=== PATIENT | female | born 1950 | race Caucasian/White ===

== ENCOUNTER 2016-12-11 10:31 | Emergency (ER) | payer OTHER ==
[2016-12-11] MEDS ORDERED: DIPHTH,PERTUSS(ACELL),TET VAC 0.5 ML VIAL IM ONE ×2 (10:35→10:46)
--- OUTSIDE RECORDS SUMMARY | 2016-12-11 10:42 | XMS REPORT | Continuity of Care Document ---
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 RIGHT EYE LEFT EYE Date Diagnosis Procedure Comments Diagnosis Procedure Comments 02/28/04 PDT 10/23/04 PDT 04/27/05 PDT 07/06/05 PDT Other Ocular Diagnoses: 1.AMD/POHS 2.macular scar s/p PDT OS Ocular Procedures OD: 1.see above 2. Ocular Procedures OS: 1. See above 2. Non-Ocular Medical History: 1. 2. Most Recent Encounters Date Type Specialty Providers Description 12/04/2016 Office Visit Ophthalmology - Vida Dobbins MD Chief Comp: Patient Specialty Reported Reason For Visit Social History Tobacco Use Types Packs/Day Years Used Date Never Smoker Smokeless Tobacco: Never Used Alcohol Use Drinks/Week oz/Week Comments Yes seldom Plan of Care Health Maintenance Due Date Last Done Comments HCV Screening 1950 Hepatitis B Vaccine (1 of 3 - Primary Series) 1950 Tdap Vaccine 1960 Lipid Disorder Screening 12/29/1967 Td Vaccine 12/29/1967 Mammogram 1989 Colonoscopy 1999 Zoster Vaccine 2009 Osteoporosis Screening (DXA Bone Density) 2014 Pneumococcal Vaccine (1 of 2 - PCV13) 2014 Influenza Vaccine: Seasonal (Season Ended) 2017 Results from Last 3 Months Not on file
--- NOTE | 2016-12-11 10:58 | ERNOTE ---
Integumentary HPI - Narrative Date of Service: 12/11/16 - General Time Seen by Provider: 12/11/16 10:33 Source: patient Exam Limitations: no limitations - Immun/Allergies/Home Medications Allergies/Adverse Reactions: Allergies Allergy/AdvReac Type Severity Reaction Status Date / Time No Known Allergies Allergy Unverified 12/11/16 10:39 Home Medications: HOME MEDICATIONS NK [No Home Medication] 12/11/16 [Last Taken Unknown] - History of Present Illness Narrative: Pt. comes in with c/o R volar wrist laceration that occurred at work 20 minutes prior to arrival when she was moving cans and a lid or something on the lid cut her hand. Pt. denies any numbness, tingling, or SOB. Pt. states that bleeding stopped after applying a gauze dressing and washing out wound. Pt. states taht she is unsure of when her last tetanus vaccine was. Review of Systems - Review of Systems Constitutional: Present: no symptoms reported. Absent: fever, chills, weakness , fatigue, malaise EYE: Present: no symptoms reported ENT: Present: no symptoms reported Respiratory: Present: no symptoms reported. Absent: shortness of breath, cough , wheezing Cardiology: Present: no symptoms reported. Absent: chest pain, palpitations, edema Gastrointestinal/Abdominal: Present: no symptoms reported. Absent: nausea, vomiting, diarrhea, abdominal pain Genitourinary: Present: no symptoms reported Musculoskeletal: Present: no symptoms reported. Absent: back pain, joint pain Skin: Present: other - laceration Neurological: Present: no symptoms reported. Absent: headache, dizziness/light- headedness, numbness, tingling All Other Systems: All systems neg except as marked - Patient's Past Medical History Patient History - Medical: No pertinent hx Patient History - Cardiac/Respiratory: No pertinent hx Physical Exam - Physical Exam General Appearance: Present: wd/wn, alert, no apparent distress Eye Exam: Normal inspection: bilateral, PERRL: bilateral, EOMI: bilateral Ears, Nose, Throat: Present: normal ENT inspection, normal pharynx Neck: Present: normal inspection, nontender. Absent: lymphadenopathy (R), lymphadenopathy (L) Respiratory: Present: no respiratory distress, normal breath sounds, no accessory muscle use, chest nontender, lungs clear Cardiovascular/Chest: Present: regular rate, rhythm, no murmur, normal peripheral pulses Gastrointestinal/Abdominal: Present: normal bowel sounds, nontender, nondistended, soft, no organomegaly Back Exam: Present: normal inspection, normal range of motion, no CVA tenderness , no vertebral tenderness Extremity Exam: Present: normal inspection, non-tender, normal range of motion, no edema Neurological Exam: Present: alert, oriented, normal mood/affect, no motor/ sensory deficits Skin Exam: Present: normal color, warm/dry, other - laceration 1.5cm in length flap scant sanguinous drainage. Absent: pallor, skin rash ED Progress - Vital Signs Patient's Vital Signs:: I have reviewed the patient's vital signs. - X-Ray X-Ray #1 X-Ray: wrist Interpretation: Reviewed by me X-ray Comments: no foreign body or acute ossious abnormality Procedures Left Volar Wrist Anesthesia: 1% Lidocaine I & D Prep: betadine prep Wound's Depth/Shape: superficial, flap Wound Explored: clean Wound Intervention: irrigated w/saline Distal NVT: neuro/vasc intact, no tendon injury Wound Repaired With: sutures Suture Size/Type: 6-0, nylon Number of Sutures: 5 Layer Closure: Simple Departure Clinical Impression: Laceration - Departure Disposition: Home self-care Condition: Good Instructions: Laceration Care, Adult, [id number] Additional Instructions: Please follow up with occupational health in 2-3 days for wound check then have sutures removed in 7-10 days
[2016-12-11 11:50] VITALS: BP 117/70
== END 2016-12-11 11:30 | disposition home or self-care (01) ==
LOC: ER 10:31
PROC: 0HQGXZZ Repair Left Hand Skin, External Approach (ICD-10-PCS; principal; 2016-12-11)
DX: S61.511A Laceration without foreign body of right wrist, initial encounter (principal); W26.8XXA Contact with other sharp object(s), not elsewhere classified, initial encounter; Y93.9 Activity, unspecified; Y92.219 Unspecified school as the place of occurrence of the external cause; Y99.0 Civilian activity done for income or pay; Z23 Encounter for immunization

== ENCOUNTER 2020-06-23 14:46 | Observation (INO) ==
--- NOTE | 2020-06-23 15:02 | ERNOTE ---
Lower Extremity HPI - Narrative Date of Service: 06/23/20 - General Lower Extremities Pain: hip: left Time Seen by Provider: 06/23/20 14:49 Source: patient Exam Limitations: no limitations - Immun/Allergies/Home Medications Immunizations: IMMUNIZATION HX Immunizations Up to Date Yes History of Influenza Vaccine No Hx Pneumococcal Vaccination No Allergies/Adverse Reactions: Allergies Allergy/AdvReac Type Severity Reaction Status Date / Time No Known Allergies Allergy Verified 06/23/20 15:02 Home Medications: HOME MEDICATIONS lisinopril 10 mg-hydrochlorothiazide 12.5 mg tablet 1 tab PO DAILY #90 tab 04/13/20 [Last Taken Unknown] - Pain Score Pain Score #1 Pain Score: 8 - History of Present Illness Narrative: The patient is a 69 year old female who presents for left hip and groin pain which has been present since last evening. There are no associated symptoms. The patient reports pain to left hip and groin, 8/10. There are no alleviating factors. There are aggravating factors of weight bearing and ROM. Previous treatments have included: Tylenol and Ibuprofen without improvement. The past medical history includes: HTN. The social history is negative. The patient has had no known ill contacts. Patient states last evening she was walking down steps and slipped missing last step landing on her left lateral hip and buttock. Patient denies striking head, LOC or neck pain. Patient states since injury she has been unable to bear weight. Review of Systems - Review of Systems Constitutional: Present: no symptoms reported. Absent: recent illness, fever, fatigue EYE: Present: no symptoms reported ENT: Present: no symptoms reported. Absent: ear pain, nasal drainage, sore throat Respiratory: Present: no symptoms reported. Absent: shortness of breath, cough Cardiology: Present: no symptoms reported. Absent: chest pain Gastrointestinal/Abdominal: Present: no symptoms reported. Absent: nausea, vomiting, diarrhea Genitourinary: Present: no symptoms reported. Absent: dysuria Musculoskeletal: Present: joint pain. Absent: back pain, neck pain Skin: Present: no symptoms reported. Absent: rash Neurological: Present: no symptoms reported All Other Systems: All systems neg except as marked Medical History (Last Reviewed 06/23/20 @ 14:59 by DARLENE Mccann) Allergic rhinitis (Chronic) Hypertension (Chronic) Onset Date: ~07/2018 Surgical History: Surgical History (Last Reviewed 06/23/20 @ 14:59 by DARLENE Mccann) History of colonoscopy Onset Date: 09/23/18 09/23/18 Bagan-tubulovillous adenoma. Recheck 3 yrs. History of tonsillectomy Onset Date: Unknown History of tubal ligation Onset Date: ~1975 Family History: Family History (Last Reviewed 06/23/20 @ 14:59 by DARLENE Mccann) Mother , age 76-[place] Myocardial infarction CAD (coronary artery disease) Sister Epilepsy Sister Breast cancer dx age 60's Father , age 65-kidney failure No problems noted. Brother of unknown cause 1 brother age 59 Cancer 1 brother age 71-lung ca Myocardial infarction 1 brother age 46, 1 brother age 59 Brother Alive and well 4 brothers Social History: (Last Reviewed 06/23/20 @ 14:59 by DARLENE Mccann) Social History: adopted: No foster care: No longterm: No Marital status: lives independently: No household members: spouse number of children: 2 caregiver/support person: No current occupational status: retired Highest level of school completed/degree received: high school graduate Service: No Tobacco: Smoking Status: Never smoker Alcohol: alcohol intake: current alcohol intake frequency: a few times a month Substance Use: substance use type: does not use Dietary Habits: caffeine: Yes Type: coffee Personal Safety: victim of physical abuse: No victim of emotional abuse: No Physical Exam - Physical Exam General Appearance: Present: wd/wn, alert, moderate distress Head Exam: Present: normal inspection, no evidence of injury Eye Exam: Normal inspection: bilateral Neck: Present: normal inspection, nontender, full range of motion Respiratory: Present: no respiratory distress, normal breath sounds, no accessory muscle use, lungs clear Cardiovascular/Chest: Present: regular rate, rhythm, no murmur Peripheral Pulses: N=norm/S=strong/W=weak/B=bound/A=absent: Dorsalis-pedis (L): Normal Extremity Exam: Present: normal range of motion - left knee and ankle, able to hold extension to knee, decreased range of motion - left hip associated with pain, bony tenderness - left lateral hip and left groin Neurological Exam: Present: alert, oriented, normal mood/affect, no motor/sensory deficits Skin Exam: Present: normal color, warm/dry Progress - Date and Time Seen: Date and Time: 06/23/20 16:06 No acute pathology on xray, will offer pain medication and reassess pain level. 06/23/20 17:09 Patient having improved pain but remains to have difficulty with weight bearing to left leg. Will proceed with CT imaging for further evaluation. 06/23/20 18:[address] imaging results discussed with ROS Asher. Will admit to medicine with plan for surgical intervention tomorrow pending medical clearance. Patient informed of plan of care and verbalized understanding. 06/23/20 18:32 contacted and will admit to medicine for surgical clearance. Patient updated regarding plan of care, will COVID test for placement. - Vital Signs Patient's Vital Signs:: I have reviewed the patient's vital signs. - EKG EKG #1 EKG: NSR EKG read: Reviewed by me - X-Ray X-Ray #1 X-Ray: hip Interpretation: Reviewed by me X-ray Comments: IMPRESSION: 1. NO ACUTE OSSEOUS ABNORMALITY INVOLVING THE AP PELVIS OR LEFT HIP. Electronically signed by Roddy Elias M.D.. - CT/Ultrasound CT/Ultrasound Narrative: Impression: Acute, mildly displaced fracture at the posterior aspect of the basicervical portion of the left femoral neck and junction with the greater trochanter. Subtle nondisplaced fracture at the inferior aspect of the left pubic ramus. Additional findings and comments are as above. Electronically signed by Casa Barboza D.O.. Departure Clinical Impression: Hip fracture, left Qualifiers: Encounter type: initial encounter Fracture type: closed Qualified Code(s): S72.002A - Fracture of unspecified part of neck of left femur, initial encounter for closed fracture - Departure Disposition: Still a patient Condition: Good Print Language: Ukrainian Referrals: Viviane Cornejo FNP [Primary Care Provider] -
[2020-06-23] MEDS ORDERED: ORPHENADRINE CITRATE 30 MG/ML VIAL IM ONE (16:10)
[2020-06-23 18:21] LABS: Hematocrit 37.6 % (37.0-47.0); Hemoglobin 12.2 gm/dL (12.5-16.0); Mean Cell Volume 89.3 fl (78-100); Mean Corpuscular Hgb Conc 32.4 g/dl (32-36); Mean Platelet Volume 9.9 fl (8-12.5); Neutrophil # 10.4 K/mm3 (1.3-6.0); Neutrophil % 76.2 % (42-75.0); Platelet Count 263 K/mm3 (150-450); Red Blood Count 4.21 M/mm3 (4.2-5.4); Red Cell Distribution Width 13.1 % (11.5-14.0); White Blood Count 13.6 K/mm3 (4.0-10.5)
[2020-06-23 18:36] LABS: Anion Gap 11.4 mmol/L (6.8-13.8); BUN/Creatinine Ratio 16.1 (9.0-21.6); Bilirubin, Total 0.7 mg/dL (0.0-1.1); Ca. Corrected For Albumin 9.3 mg/dL (8.4-10.2); Calcium * 9.6 mg/dL (7.9-10.9); Carbon Dioxide 28.3 mmol/L (24-32.6); Potassium 3.7 mmol/L (3.4-4.6); Total Protein 7.6 gm/dL (6.2-8.2)
--- NOTE | 2020-06-23 18:57 | HP ---
Chief Complaint - Chief Complaint Date of Service: 06/23/20 Time of Service: 18:32 Chief Complaint: Left hip pain History of Present Illness: 69-year-old female with a past medical history of hypertension presents from home status post fall. She states she fell down the steps last night. She had difficulty ambulating throughout the day today and presented to the emergency room with left hip pain. In the ER she was found to have CT scan positive for acute mildly displaced fracture at the posterior aspect of the left femoral neck, and subtle nondisplaced fracture of the left pubic ramus. Medical History (Last Reviewed 06/23/20 @ 15:13 by Viviane Garcia RN) Allergic rhinitis (Chronic) Hypertension (Chronic) Onset Date: ~07/2018 Surgical History: Surgical History (Last Reviewed 06/23/20 @ 15:13 by Viviane Garcia RN) History of colonoscopy Onset Date: 09/23/18 09/23/18 Bagan-tubulovillous adenoma. Recheck 3 yrs. History of tonsillectomy Onset Date: Unknown History of tubal ligation Onset Date: ~1975 Family History: Family History (Last Reviewed 06/23/20 @ 15:13 by Viviane Garcia RN) Mother , age 76-[place] CAD (coronary artery disease) Myocardial infarction Sister Epilepsy Sister Breast cancer dx age 60's Father , age 65-kidney failure No problems noted. Brother Myocardial infarction 1 brother age 46, 1 brother age 59 Cancer 1 brother age 71-lung ca of unknown cause 1 brother age 59 Brother Alive and well 4 brothers Social History: (Last Reviewed 06/23/20 @ 15:13 by Viviane Garcia RN) Social History: adopted: No foster care: No care home: No Marital status: lives independently: No household members: spouse number of children: 2 caregiver/support person: No current occupational status: retired Highest level of school completed/degree received: high school graduate Service: No Tobacco: Smoking Status: Never smoker Alcohol: alcohol intake: current alcohol intake frequency: a few times a month Substance Use: substance use type: does not use Dietary Habits: caffeine: Yes Type: coffee Personal Safety: victim of physical abuse: No victim of emotional abuse: No Review Of Systems (GEN) - Review of Systems Generalized/Overall Review: Absent: Fever Respiratory: Absent: Shortness of Breath Cardiac: Absent: Chest Pain Abdominal: Absent: Abdominal Pain Musculoskeletal: Present: Joint Pain - Left hip Misc: All systems neg except as marked Immunizations: IMMUNIZATION HX Immunizations Up to Date Yes History of Influenza Vaccine No Hx Pneumococcal Vaccination Yes Allergies/Adverse Reactions: Allergies Allergy/AdvReac Type Severity Reaction Status Date / Time No Known Allergies Allergy Verified 06/23/20 15:02 Home Medications: HOME MEDICATIONS lisinopril 10 mg-hydrochlorothiazide 12.5 mg tablet 1 tab PO DAILY #90 tab 04/13/20 [Last Taken Unknown] Exam - Exam Vital Signs: Vital Signs - Last Taken Temp 37.2 C 06/23/20 17:45 Pulse 68 06/23/20 17:45 Resp 16 06/23/20 17:45 BP 157/93 H 06/23/20 17:45 Pulse Ox 99 06/23/20 17:45 Constitutional: Present: Alert, Cooperative, Well developed, Well nourished, No distress, Elderly ENT Exam: Present: hearing grossly normal Eye Exam: bilateral eye: normal inspection, PERRL, EOMI Neck: Present: non-tender, supple. Absent: lymphadenopathy (R), lymphadenopathy (L) Back Exam: Present: normal inspection, no CVA tenderness, no vertebral tenderness Respiratory: Present: lungs clear, no respiratory distress, no accessory muscle use, No wheezing. Absent: rhonchi, wheezing Cardiovascular/Chest: Present: normal peripheral pulses, regular rate, rhythm, no murmur Peripheral Pulses: dorsalis-pedis (R): 1+, dorsalis-pedis (L): 1+ Abdomen: Present: Normal bowel sounds, soft, nontender Extremity: Present: no pedal edema, leg pain - Left hip Skin Exam: Present: normal color, warm/dry Neurologic: Present: alert, normal mood/affect Appearance: Present: appropriate appearance, appropriate insight Eye contact: Present: cooperative Thoughts: Present: normal thought pattern, normal mood /affect Diagnostic Studies: Abnormal Lab Results 06/23/20 Range/Units 18:15 WBC 13.6 H (4.0-10.5) K/mm3 Hgb 12.2 L (12.5-16.0) gm/dL Immature Gran % (Auto) 0.70 H (0.001-0.429) % Immature Gran # (Auto) 0.09 H (0.000-0.0310) K/mm3 Neutrophils % 76.2 H (42-75.0) % Lymphocytes % 12.1 L (20-51) % Eosinophils % 3.7 H (0.0-3.0) % Neutrophils # 10.4 H (1.3-6.0) K/mm3 Laboratory Results WBC 13.6 K/mm3 (4.0-10.5) H 06/23/20 18:15 RBC 4.21 M/mm3 (4.2-5.4) 06/23/20 18:15 Hgb 12.2 gm/dL (12.5-16.0) L 06/23/20 18:15 Hct 37.6 % (37.0-47.0) 06/23/20 18:15 MCV 89.3 fl (78-100) 06/23/20 18:15 MCH 29.0 pg (27-31) 06/23/20 18:15 MCHC 32.4 g/dl (32-36) 06/23/20 18:15 RDW 13.1 % (11.5-14.0) 06/23/20 18:15 Plt Count 263 K/mm3 (150-450) 06/23/20 18:15 MPV 9.9 fl (8-12.5) 06/23/20 18:15 Immature Gran % (Auto) 0.70 % (0.001-0.429) H 06/23/20 18:15 Immature Gran # (Auto) 0.09 K/mm3 (0.000-0.0310) H 06/23/20 18:15 Neutrophils % 76.2 % (42-75.0) H 06/23/20 18:15 Lymphocytes % 12.1 % (20-51) L 06/23/20 18:15 Monocytes % 7.0 % (0.0-9) 06/23/20 18:15 Eosinophils % 3.7 % (0.0-3.0) H 06/23/20 18:15 Basophils % 0.3 % (0.0-1.0) 06/23/20 18:15 Nucleated RBC % 0.0 k/mm3 (0-1) 06/23/20 18:15 Neutrophils # 10.4 K/mm3 (1.3-6.0) H 06/23/20 18:15 Lymphocytes # 1.65 k/mm3 (1.5-3.5) 06/23/20 18:15 Monocytes # 1.0 k/mm3 (0.0-1.0) 06/23/20 18:15 Eosinophils # 0.5 k/mm3 (0.0-0.7) 06/23/20 18:15 Absolute Basophils 0.0 k/mm3 (0.0-0.1) 06/23/20 18:15 Sodium 136 mmol/L (132-142) 06/23/20 18:15 Plasma Sodium 136 mmol/L (130-142) 06/23/20 18:15 Potassium 3.7 mmol/L (3.4-4.6) 06/23/20 18:15 Chloride 100 mmol/L (97-106) 06/23/20 18:15 Carbon Dioxide 28.3 mmol/L (24-32.6) 06/23/20 18:15 Anion Gap 11.4 mmol/L (6.8-13.8) 06/23/20 18:15 BUN 15 mg/dL (3-23) 06/23/20 18:15 Creatinine 0.93 mg/dL (0.4-1.4) 06/23/20 18:15 Est GFR (Non-Af Amer) 63 mL/min (60-130) 06/23/20 18:15 BUN/Creatinine Ratio 16.1 (9.0-21.6) 06/23/20 18:15 Random Glucose 107 mg/dL (70-110) 06/23/20 18:15 Calcium 9.6 mg/dL (7.9-10.9) 06/23/20 18:15 Calcium Adj for Albumin 9.3 mg/dL (8.4-10.2) 06/23/20 18:15 Total Bilirubin 0.7 mg/dL (0.0-1.1) 06/23/20 18:15 AST 26 U/L (0-48) 06/23/20 18:15 ALT 29 U/L (19-67) 06/23/20 18:15 Alkaline Phosphatase 73 U/L (50-170) 06/23/20 18:15 Total Protein 7.6 gm/dL (6.2-8.2) 06/23/20 18:15 Albumin 4.0 gm/dl (3.4-5.0) 06/23/20 18:15 Assessment/Plan - Narrative Narrative: 69-year-old female with a past medical history of hypertension presents from home status post fall. She states she fell down the steps last night. She had difficulty ambulating throughout the day today and presented to the emergency room with left hip pain. In the ER she was found to have CT scan positive for acute mildly displaced fracture at the posterior aspect of the left femoral neck, and subtle nondisplaced fracture of the left pubic ramus. She denies chest pain, palpitations, shortness of breath or dizziness. She will be evaluated for surgery by orthopedics tomorrow. She is medically cleared for surgery. Plan #1 resume home medications #2 CBC and CMP in the morning #3 pain management #4 n.p.o. after midnight - Assessment/Plan (1) Hip fracture, left Problem: Acute Qualifiers: Encounter type: initial encounter Fracture type: closed Qualified Code(s): S72.002A - Fracture of unspecified part of neck of left femur, initial encounter for closed fracture (2) Hypertension Problem: Chronic Qualifiers: Hypertension type: essential hypertension
[2020-06-23] MEDS ORDERED: MORPHINE SULFATE 2 MG/ML DISP.SYRIN IV PRN (19:03)
[2020-06-23] MEDS: ACETAMINOPHEN 325 MG TABLET PO PRN (19:24)
[2020-06-23] MEDS: NORMAL SALINE 1,000 ML IV PRN (21:12)
[2020-06-24] MEDS: ACETAMINOPHEN 325 MG TABLET PO PRN ×2 (04:49→13:55)
[2020-06-24] MEDS: NORMAL SALINE 1,000 ML IV PRN (05:40)
[2020-06-24 06:35] LABS: Hematocrit 34.3 % (37.0-47.0); Mean Cell Volume 89.3 fl (78-100); Mean Corpuscular Hemoglobin 28.6 pg (27-31); Mean Corpuscular Hgb Conc 32.1 g/dl (32-36); Mean Platelet Volume 9.9 fl (8-12.5); Neutrophil # 7.3 K/mm3 (1.3-6.0); Neutrophil % 68.8 % (42-75.0); Platelet Count 243 K/mm3 (150-450); Red Blood Count 3.84 M/mm3 (4.2-5.4); Red Cell Distribution Width 13.1 % (11.5-14.0); White Blood Count 10.6 K/mm3 (4.0-10.5)
[2020-06-24 06:54] LABS: Albumin * 3.3 gm/dl (3.4-5.0); Anion Gap 10.9 mmol/L (6.8-13.8); BUN/Creatinine Ratio 15.9 (9.0-21.6); Bilirubin, Total 0.9 mg/dL (0.0-1.1); Ca. Corrected For Albumin 8.8 mg/dL (8.4-10.2); Calcium * 8.6 mg/dL (7.9-10.9); Carbon Dioxide 27.7 mmol/L (24-32.6); Potassium 3.6 mmol/L (3.4-4.6); Total Protein 6.6 gm/dL (6.2-8.2)
--- NOTE | 2020-06-24 08:33 | CONS ---
- Reason for consultation (1) Inferior pubic ramus fracture Date of Service: 06/24/20 (2) Hip fracture, left Date of Service: 06/24/20 HPI - General Date of Service: 06/24/20 Narrative: 69-year-old patient presented to the ER status post a fall with significant left hip pain. Patient difficulty weightbearing, and continued pain is gradually worsening. Patient notes her pain is significantly worse with weightbearing activity drastically improved with rest. She notes that it mostly radiates in her upper thigh and hip region. Patient denies any significant medications at home. She is otherwise healthy has a past medical history of hypertension. Patient denies any other acute concerns. She denies any other significant modifying factors. Source: patient Exam Limitations: no limitations - History of Present Illness Allergies/Adverse Reactions: Allergies No Known Allergies Allergy (Verified 06/23/20 15:02) Home Medications: Home Medications Medication Instructions Recorded Last Taken lisinopril 10 1 tab PO DAILY #90 tab 04/13/20 06/23/20 07:00 mg-hydrochlorothiazide 12.5 mg tablet Procedures Repair Left Hand Skin, External Approach (12/11/16) Medications - Medications Current Medications: Current Medications Acetaminophen (Acetaminophen 325 Mg Tablet) 650 mg PO Q6H PRN PRN Reason: Pain Stop: 07/23/20 19:16 Last Admin: 06/24/20 04:49 Dose: 650 mg Documented by: Hydrochlorothiazide (Hydrochlorothiazide 12.5 Mg Capsule) 12.5 mg PO DAILY MP Stop: 07/24/20 09:01 Last Admin: 06/24/20 08:13 Dose: 12.5 mg Documented by: Sodium Chloride (Sodium Chloride 0.9%) 1,000 mls @ 120 mls/hr IV .Q8H20M PRN PRN Reason: HYDRATION Stop: 07/23/20 19:54 Last Admin: 06/24/20 05:40 Dose: 120 mls/hr Documented by: Lisinopril (Lisinopril 10 Mg Tablet) 10 mg PO DAILY MP Stop: 07/24/20 09:01 Last Admin: 06/24/20 08:13 Dose: 10 mg Documented by: Physical Examination - Exam Vital Signs: Vital Signs - Last Taken Temp 36.9 C 06/24/20 06:00 Pulse 73 06/24/20 08:13 Resp 16 06/24/20 06:00 BP 127/75 06/24/20 08:13 Pulse Ox 94 06/24/20 06:00 O2 Oxygen Delivery Method Room Air Constitutional: Present: Alert, Oriented x3, Cooperative, No distress Respiratory: Present: no respiratory distress Extremity: Present: other - Left lower extremity--> sensation tact light touch, distal capillary refill brisk, 5/5 plantar flexion dorsiflexion ankle, no obvious wounds or deformities, diffuse mild tenderness about the upper thigh and hip region Skin Exam: Present: normal color Appearance: Present: appropriate appearance Eye contact: Present: cooperative, good eye contact Thoughts: Present: normal thought pattern - Results and Findings: Lab/Microbiology results last 24 hrs: Abnormal/Pending Laboratory Last 24 HRS 06/24/20 06/24/20 06/23/20 06:20 06:20 18:15 WBC 10.6 H D 13.6 H RBC 3.84 L Hgb 11.0 L 12.2 L Hct 34.3 L Immature Gran % (Auto) 0.70 H 0.70 H Immature Gran # (Auto) 0.07 H 0.09 H Neutrophils % 76.2 H Lymphocytes % 12.6 L 12.1 L Eosinophils % 9.0 H 3.7 H Neutrophils # 7.3 H 10.4 H Lymphocytes # 1.34 L Eosinophils # 1.0 H Albumin 3.3 L - Assessments/Findings (1) Inferior pubic ramus fracture Problem: Acute (2) Hip fracture, left Problem: Acute Qualifiers: Encounter type: initial encounter Fracture type: closed Qualified Code(s): S72.002A - Fracture of unspecified part of neck of left femur, initial encounter for closed fracture Plan - Plan Plan: 69-year-old female with right hip fracture and inferior pubic ramus fracture, note these fractures can both be managed nonoperatively with close follow-up and protective weightbearing. Reviewed the films with Dr. Pedersen and he agrees with this treatment plan as well as plan of follow-up care. -Weightbearing as tolerated with assistive device of a walker, protective weightbearing -P.o. diet as tolerated -P.o. pain medication per medicine team on discharge -Follow-up with orthopedic outpatient clinic in 1 week for repeat films -Must pass goals of physical therapy including steps to enter her home -Contact orthopedic outpatient office with any significant questions or concerns -Disposition: Once patient has met all goals with physical therapy and is tolerating a p.o. diet, pain well controlled she will be discharged home with close follow-up in 1 week and repeat films
[2020-06-24] MEDS ORDERED: LISINOPRIL 10 MG TABLET PO SCH (09:00)
[2020-06-24] MEDS ORDERED: HYDROCHLOROTHIAZIDE 12.5 MG CAPSULE PO SCH (09:00)
--- NOTE | 2020-06-24 12:06 | DS ---
(1) Hip fracture, left Problem: Acute Qualifiers: Encounter type: initial encounter Fracture type: closed Qualified Code(s): S72.002A - Fracture of unspecified part of neck of left femur, initial encounter for closed fracture (2) Hypertension Problem: Chronic Qualifiers: Hypertension type: essential hypertension Hospital Course: 69-year-old female with a past medical history of hypertension presents from home status post fall. She states she fell down the steps last night. She had difficulty ambulating throughout the day today and presented to the emergency room with left hip pain. In the ER she was found to have CT scan positive for acute mildly displaced fracture at the posterior aspect of the left femoral neck, and subtle nondisplaced fracture of the left pubic ramus. She was evaluated by orthopedics and they determined that no surgical intervention is needed. They would like to follow-up with her in 1 week in the outpatient setting. She has been advised to weight-bear as tolerated. She ambulated well with a walker. She is stable for discharge home today. She did not require any narcotic medication while in the hospital. Advised to alternate Tylenol and ibuprofen as needed for pain. Procedures Performed: none Results and Findings: Lab Pending Results 06/23/20 18:15: WBC 13.6 H, RBC 4.21, Hgb 12.2 L, Hct 37.6, MCV 89.3, MCH 29.0, MCHC 32.4, RDW 13.1, Plt Count 263, MPV 9.9, Immature Gran % (Auto) 0.70 H, Immature Gran # (Auto) 0.09 H, Neutrophils % 76.2 H, Lymphocytes % 12.1 L, Monocytes % 7.0, Eosinophils % 3.7 H, Basophils % 0.3, Nucleated RBC % 0.0, Neutrophils # 10.4 H, Lymphocytes # 1.65, Monocytes # 1.0, Eosinophils # 0.5, Absolute Basophils 0.0 06/23/20 18:15: Sodium 136, Plasma Sodium 136, Potassium 3.7, Chloride 100, Carbon Dioxide 28.3, Anion Gap 11.4, BUN 15, Creatinine 0.93, Est GFR (Non-Af Amer) 63, BUN/Creatinine Ratio 16.1, Random Glucose 107, Calcium 9.6, Calcium Adj for Albumin 9.3, Total Bilirubin 0.7, AST 26, ALT 29, Alkaline Phosphatase 73, Total Protein 7.6, Albumin 4.0 06/23/20 18:26: SARS-CoV-2 (PCR) Not detected 06/24/20 06:20: WBC 10.6 H D, RBC 3.84 L, Hgb 11.0 L, Hct 34.3 L, MCV 89.3, MCH 28.6, MCHC 32.1, RDW 13.1, Plt Count 243, MPV 9.9, Immature Gran % (Auto) 0.70 H, Immature Gran # (Auto) 0.07 H, Neutrophils % 68.8, Lymphocytes % 12.6 L, Monocytes % 8.5, Eosinophils % 9.0 H, Basophils % 0.4, Nucleated RBC % 0.0, Neutrophils # 7.3 H, Lymphocytes # 1.34 L, Monocytes # 0.9, Eosinophils # 1.0 H, Absolute Basophils 0.0 06/24/20 06:20: Sodium 141, Plasma Sodium 141, Potassium 3.6, Chloride 106, Carbon Dioxide 27.7, Anion Gap 10.9, BUN 11, Creatinine 0.69, Est GFR (Non-Af Amer) 89 D, BUN/Creatinine Ratio 15.9, Random Glucose 104, Calcium 8.6, Calcium Adj for Albumin 8.8, Total Bilirubin 0.9, AST 23, ALT 23, Alkaline Phosphatase 67, Total Protein 6.6, Albumin 3.3 L Discharge Location: Home Disposition: Home self-care Condition: Good Discharge Activity: Activity as tolerated, Weight bearing - Left lower extremity, weightbearing as tolerated Discharge Diet: General/regular food Referrals: Viviane Cornejo FNP [Primary Care Provider] - Additional Patient Instructions (free text): Follow-up with [facility] orthopedic clinic in 1 week for repeat films, on July 01 at 12:45. Weightbearing as tolerated with assistive device of a walker, protective weightbearing -Contact orthopedic outpatient office with any significant questions or concerns [phone] Complete Home Medications List: Complete Home Medication List: lisinopril 10 mg-hydrochlorothiazide 12.5 mg tablet 1 tab PO DAILY #90 tab 04/13/20
[2020-06-24 15:00] VITALS: BP 128/76
== END 2020-06-24 15:00 | disposition home or self-care (01) ==
LOC: ER 14:46 → INTOOBSV 19:45 → MS 19:45
PROVIDERS: ADMIT Internal Medicine; ATTEND Internal Medicine

== ENCOUNTER 2020-07-04 18:33 | Inpatient (IN) ==
[2020-07-04] MEDS ORDERED: ORPHENADRINE CITRATE 30 MG/ML VIAL IM ONE (18:48)
--- NOTE | 2020-07-04 18:50 | ERNOTE ---
Lower Extremity HPI - Narrative Date of Service: 07/04/20 - General Lower Extremities Pain: leg: left Time Seen by Provider: 07/04/20 18:37 Source: patient Exam Limitations: no limitations - Immun/Allergies/Home Medications Immunizations: IMMUNIZATION HX Immunizations Up to Date Yes History of Influenza Vaccine No Hx Pneumococcal Vaccination Yes Allergies/Adverse Reactions: Allergies Allergy/AdvReac Type Severity Reaction Status Date / Time No Known Allergies Allergy Verified 07/04/20 18:39 Home Medications: HOME MEDICATIONS lisinopril 10 mg-hydrochlorothiazide 12.5 mg tablet 1 tab PO DAILY #90 tab 04/13/20 [Last Taken 06/23/20 07:00] ibuprofen 600 mg tablet 600 mg PO Q6H PRN #60 tab 06/28/20 [Last Taken Unknown] - Pain Score Pain Score #1 Pain Score: 6 - History of Present Illness Narrative: The patient is a 69 year old female who presents for increased pain to left hip which has been present for 2 days. There are no associated symptoms. The patient reports pain to left anterior and lateral hip and groin, 12/30. There are alleviating factors of immobilization. There are aggravating factors of weight bearing and activity. Previous treatments have included: Ibuprofen without improvement. The past medical history includes: HTN. The social hi story is negative. The patient has had no known ill contacts. Patient had reported fall on 06/22/20, patient was evaluted on 06/23/20 with imaging results showing left inferior pubic ramus fx and left greater trochanter. Patient had follow up with orthopedic office on 07/01/20 with repeat imaging and patient was without pain and felt to be doing well. Patient states yesterday she developed increased pain and difficulty with weight bearing. Patient denies injury or change to activity. Review of Systems - Review of Systems Constitutional: Present: no symptoms reported. Absent: recent illness, fever, fatigue EYE: Present: no symptoms reported ENT: Present: no symptoms reported. Absent: ear pain, nasal drainage, sore throat Respiratory: Present: no symptoms reported. Absent: shortness of breath, cough Cardiology: Present: no symptoms reported. Absent: chest pain Gastrointestinal/Abdominal: Present: no symptoms reported. Absent: nausea, vomiting, diarrhea Genitourinary: Present: no symptoms reported. Absent: dysuria, decreased urinary output Musculoskeletal: Present: joint pain Skin: Present: no symptoms reported. Absent: rash All Other Systems: All systems neg except as marked Medical History (Last Reviewed 07/04/20 @ 19:59 by DARLENE Mccann) Hip fracture, left (Acute) Greater trochanter Allergic rhinitis (Chronic) Hypertension (Chronic) Onset Date: ~07/2018 Surgical History: Surgical History (Last Reviewed 07/04/20 @ 19:59 by DARLENE Mccann) History of colonoscopy Onset Date: 09/23/18 09/23/18 [place]-tubulovillous adenoma. Recheck 3 yrs. History of tonsillectomy Onset Date: Unknown History of tubal ligation Onset Date: ~1975 Family History: Family History (Last Reviewed 07/04/20 @ 19:59 by DARLENE Mccann) Mother , age 76-[place] CAD (coronary artery disease) Myocardial infarction Sister Epilepsy Sister Breast cancer dx age 60's Father , age 65-kidney failure No problems noted. Brother Myocardial infarction 1 brother age 46, 1 brother age 59 Cancer 1 brother age 71-lung ca of unknown cause 1 brother age 59 Brother Alive and well 4 brothers Social History: (Last Reviewed 07/04/20 @ 19:59 by DARLENE Mccann) Social History: adopted: No foster care: No prison: No Marital status: lives independently: No household members: spouse number of children: 2 caregiver/support person: No current occupational status: retired current occupation: retired Highest level of school completed/degree received: high school graduate Service: No Tobacco: Smoking Status: Never smoker Alcohol: alcohol intake: current alcohol intake frequency: a few times a month Substance Use: substance use type: does not use Dietary Habits: caffeine: Yes Type: coffee Personal Safety: victim of physical abuse: No victim of emotional abuse: No Physical Exam - Physical Exam General Appearance: Present: wd/wn, alert, moderate distress Head Exam: Present: normal inspection, no evidence of injury Eye Exam: Normal inspection: bilateral Neck: Present: normal inspection, nontender Respiratory: Present: no respiratory distress, normal breath sounds, no accessory muscle use, lungs clear Cardiovascular/Chest: Present: regular rate, rhythm, no murmur Peripheral Pulses: N=norm/S=strong/W=weak/B=bound/A=absent: Dorsalis-pedis (L): Normal Extremity Exam: Present: decreased range of motion - limited ROM to left hip, bony tenderness - pain to anterior proximal femur and groin, extremity edema. Absent: joint redness, joint swelling Neurological Exam: Present: alert, oriented, normal mood/affect, no motor/sensory deficits Skin Exam: Present: normal color, warm/dry Progress - Date and Time Seen: Date and Time: 07/04/20 20:08 Images sent to [facility], instructed to admit to medicine for plan for surgical repair due to interval worsening of fracture. 07/04/20 21:22 Case reviewed with and will admit to medicine. Will administer IV fluids for hydration which is thought to be cause for elevation to crea. - Results and Orders Patient's Lab Results:: I have reviewed the patient's lab results. - Vital Signs Patient's Vital Signs:: I have reviewed the patient's vital signs. Vital Signs: Vital Signs 07/04/20 18:35 Temperature 36.9 C Pulse Rate 76 Respiratory Rate 16 Blood Pressure 182/67 H O2 Sat by Pulse Oximetry 100 - EKG EKG #1 EKG: NSR EKG read: Reviewed by me EKG Comments: wandering baseline - X-Ray X-Ray #1 X-Ray: chest Interpretation: Reviewed by me X-ray Comments: IMPRESSION: 1. NO ACUTE CARDIOPULMONARY PROCESS. Electronically signed by Roddy Elias M.D.. X-Ray #2 X-Ray: hip Interpretation: Reviewed by me X-ray Comments: IMPRESSION: 1. DIFFUSE OSTEOPENIA. 2. NO ACUTE OSSEOUS ABNORMALITY INVOLVING THE AP PELVIS 3. NONDISPLACED VERTICAL FRACTURE THROUGH THE LEFT GREATER TROCHANTER Electronically signed by Roddy Elias M.D.. - Progress/Reassessment Chief Complaint: Lower Extremity Pain/ Injury Departure Clinical Impression: Acute renal insufficiency Intertrochanteric fracture of left femur Qualifiers: Encounter type: initial encounter Fracture type: closed Fracture alignment: nondisplaced Qualified Code(s): S72.145A - Nondisplaced intertrochanteric fracture of left femur, initial encounter for closed fracture Inferior pubic ramus fracture Qualifiers: Encounter type: initial encounter Fracture type: closed Laterality: left Qualified Code(s): Z61.750T - Other specified fracture of left pubis, initial encounter for closed fracture - Departure Disposition: Still a patient Condition: Stable Referrals: Viviane Cornejo, [facility] [Primary Care Provider] -
[2020-07-04] MEDS ORDERED: MORPHINE SULFATE 4 MG/ML SYRG IV ONE (20:26)
[2020-07-04 20:30] LABS: Hemoglobin 11.5 gm/dL (12.5-16.0); Mean Cell Volume 91.1 fl (78-100); Mean Corpuscular Hemoglobin 29.1 pg (27-31); Mean Corpuscular Hgb Conc 31.9 g/dl (32-36); Mean Platelet Volume 10.3 fl (8-12.5); Platelet Count 393 K/mm3 (150-450); Red Blood Count 3.95 M/mm3 (4.2-5.4); Red Cell Distribution Width 13.3 % (11.5-14.0); White Blood Count 14.6 K/mm3 (4.0-10.5)
[2020-07-04 20:32] LABS: Total Cells Counted 100
[2020-07-04 20:45] LABS: Albumin * 4.1 gm/dl (3.4-5.0); Anion Gap 14.6 mmol/L (6.8-13.8); BUN/Creatinine Ratio 32.2 (9.0-21.6); Bilirubin, Total 0.3 mg/dL (0.0-1.1); Ca. Corrected For Albumin 9.3 mg/dL (8.4-10.2); Calcium * 9.7 mg/dL (7.9-10.9); Carbon Dioxide 26.3 mmol/L (24-32.6); Potassium 4.9 mmol/L (3.4-4.6)
[2020-07-04 20:50] LABS: Atypical (Reactive) Lymph 2 % (0-2); Eosinophil 7 % (0-3); Lymphocyte 11 % (20-51); Monocyte 6 % (0-9); Neutrophil 74 % (42-75); Neutrophil # 10.8 K/mm3 (1.3-6.0); Platelet Estimate Normal (NORMAL); RBC Morphology Normal (NORMAL)
[2020-07-04] MEDS ORDERED: NORMAL SALINE 1,000 ML IV PRN (20:57)
[2020-07-04] MEDS ORDERED: NORMAL SALINE 1,000 ML IV ONE (21:30)
[2020-07-04] MEDS ORDERED: ACETAMINOPHEN 325 MG TABLET PO PRN ×2 (21:32→22:06)
[2020-07-04] MEDS ORDERED: IBUPROFEN 600 MG TABLET PO PRN (22:05)
[2020-07-04] MEDS ORDERED: amLODIPine BESYLATE 5 MG TABLET PO ONE (22:06)
[2020-07-04] MEDS: MORPHINE SULFATE 4 MG/ML SYRG IV PRN (22:13)
--- NOTE | 2020-07-04 22:20 | HP ---
Chief Complaint - Chief Complaint Date of Service: 07/04/20 Time of Service: 22:13 Chief Complaint: I have left hip pain that started Sunday. History of Present Illness: 69-year-old female with past medical history of hypertension was evaluated in the ER for worsening left hip pain that started this past Sunday. Patient was diagnosed with a left greater trochanteric and left inferior rami pubis fracture on June 22 after she fell. She was evaluated by the orthopedic surgeon who recommended conservative management only, patient was then discharged home and was provided with a follow-up appointment. The patient attended a follow-up appointment and was told that her fractures appeared stable and did not need surgery, however the following day she developed increasing pain in her left hip that made it difficult to walk. The patient became alarmed when her pain did not respond to at home pain medications. She also says it became difficult to bear weight on the left side. Once in the ER x-rays were taken that revealed displacement of her fractures, so Ortho was consulted and they recommended surgery in the morning to repair the fractures. Of note the patient was found to have acute kidney injury which is believed to be due to to poor oral intake for more than 24 hours. The patient reports she just can get up to get water or food like she usually does and has not been eating or drinking much. We will hydrate the patient in order to address her kidney injury. Medical History (Last Reviewed 07/04/20 @ 19:59 by DARLENE Mccann) Hip fracture, left (Acute) Greater trochanter Allergic rhinitis (Chronic) Hypertension (Chronic) Onset Date: ~07/2018 Surgical History: Surgical History (Last Reviewed 07/04/20 @ 19:59 by DARLENE Mccann) History of colonoscopy Onset Date: 09/23/18 09/23/18 [place]-tubulovillous adenoma. Recheck 3 yrs. History of tonsillectomy Onset Date: Unknown History of tubal ligation Onset Date: ~1975 Family History: Family History (Last Reviewed 07/04/20 @ 19:59 by DARLENE Mccann) Mother , age 76-[place] CAD (coronary artery disease) Myocardial infarction Sister Epilepsy Sister Breast cancer dx age 60's Father , age 65-kidney failure No problems noted. Brother Myocardial infarction 1 brother age 46, 1 brother age 59 Cancer 1 brother age 71-lung ca of unknown cause 1 brother age 59 Brother Alive and well 4 brothers Social History: (Last Reviewed 07/04/20 @ 19:59 by DARLENE Mccann) Social History: adopted: No foster care: No residential: No Marital status: lives independently: No household members: spouse number of children: 2 caregiver/support person: No current occupational status: retired current occupation: retired Highest level of school completed/degree received: high school graduate Service: No Tobacco: Smoking Status: Never smoker Alcohol: alcohol intake: current alcohol intake frequency: a few times a month Substance Use: substance use type: does not use Dietary Habits: caffeine: Yes Type: coffee Personal Safety: victim of physical abuse: No victim of emotional abuse: No Peds Patient Hx - Developmental: No Pertinent Hx Peds Patient Hx - Medical: No Pertinent Hx Peds Patient Hx - Cardiac/Respiratory: No Pertinent Hx Peds Patient Hx - Surgical: No Surgical History Patient History - Cancer: No Hx of Cancer Review Of Systems (GEN) - Review of Systems Generalized/Overall Review: Present: No Symptoms Reported EENTM: Present: No Symptoms Reported Respiratory: Present: No Symptoms Reported Cardiac: Present: No Symptoms Reported Abdominal: Present: No Symptoms Reported Genitourinary: Present: No Symptoms Reported Musculoskeletal: Present: Joint Pain - Left hip pain Neurological: Present: No Symptoms Reported Skin: Present: No Symptoms Reported Endocrine: Present: No Symptoms Reported Immunizations: IMMUNIZATION HX Immunizations Up to Date Yes History of Influenza Vaccine No Hx Pneumococcal Vaccination Yes Allergies/Adverse Reactions: Allergies Allergy/AdvReac Type Severity Reaction Status Date / Time No Known Allergies Allergy Verified 07/04/20 18:39 Home Medications: HOME MEDICATIONS lisinopril 10 mg-hydrochlorothiazide 12.5 mg tablet 1 tab PO DAILY #90 tab 04/13/20 [Last Taken 06/23/20 07:00] ibuprofen 600 mg tablet 600 mg PO Q6H PRN #60 tab 06/28/20 [Last Taken Unknown] Exam - Exam Vital Signs: Vital Signs - Last Taken Temp 36.9 C 07/04/20 18:35 Pulse 64 07/04/20 21:34 Resp 18 07/04/20 21:34 BP 156/54 H 07/04/20 21:34 Pulse Ox 100 07/04/20 21:34 Constitutional: Present: Alert, Oriented x3, Cooperative, Well developed, Well nourished, No distress Eye Exam: bilateral eye: normal inspection, PERRL, EOMI Neck: Present: non-tender, full range of motion, supple, normal inspection, trachea midline Back Exam: Present: normal inspection, no CVA tenderness, no vertebral tenderness Breasts: Present: Exam deferred, Nontender Respiratory: Present: chest non-tender, lungs clear, normal breath sounds, no respiratory distress, no accessory muscle use Cardiovascular/Chest: Present: normal peripheral pulses, regular rate, rhythm, no chest tenderness, no edema, no gallop, no JVD, no murmur, no rub Peripheral Pulses: dorsalis-pedis (R): 3+, dorsalis-pedis (L): 3+ Abdomen: Present: Normal bowel sounds, soft, nontender, nondistended, no rebound tenderness, no hepatospenomegaly, no masses, obese /Rectal: Present: Exam deferred Extremity: Present: no pedal edema, no calf tenderness, normal capillary refill, leg pain - Left hip pain Skin Exam: Present: normal color, warm/dry, no cyanosis Lymphatic: Present: no adenopathy Neurologic: Present: card clothier II-XII nml as tested, no motor/sensory deficits, alert, normal mood/affect, oriented x 3 Appearance: Present: appropriate appearance, appropriate insight, neat, no memory impairment Eye contact: Present: cooperative, good eye contact, normal speech Thoughts: Present: normal thought pattern, no apparent hallucination Diagnostic Studies: Abnormal Lab Results 07/04/20 07/04/20 Range/Units 20:05 20:05 WBC 14.6 H (4.0-10.5) K/mm3 RBC 3.95 L (4.2-5.4) M/mm3 Hgb 11.5 L (12.5-16.0) gm/dL Hct 36.0 L (37.0-47.0) % MCHC 31.9 L (32-36) g/dl Lymphocytes % (Manual) 11 L (20-51) % Eosinophils % (Manual) 7 H (0-3) % Neutrophils # (Manual) 10.8 H (1.3-6.0) K/mm3 Eosinophils # (Manual) 1.0 H (0.0-0.7) k/mm3 Potassium 4.9 H D (3.4-4.6) mmol/L Anion Gap 14.6 H (6.8-13.8) mmol/L BUN 49 H D (3-23) mg/dL Creatinine 1.52 H D (0.4-1.4) mg/dL Est GFR (Non-Af Amer) 36 L D (60-130) mL/min BUN/Creatinine Ratio 32.2 H (9.0-21.6) Random Glucose 118 H (70-110) mg/dL Laboratory Results WBC 14.6 K/mm3 (4.0-10.5) H 07/04/20 20:05 RBC 3.95 M/mm3 (4.2-5.4) L 07/04/20 20:05 Hgb 11.5 gm/dL (12.5-16.0) L 07/04/20 20:05 Hct 36.0 % (37.0-47.0) L 07/04/20 20:05 MCV 91.1 fl (78-100) 07/04/20 20:05 MCH 29.1 pg (27-31) 07/04/20 20:05 MCHC 31.9 g/dl (32-36) L 07/04/20 20:05 RDW 13.3 % (11.5-14.0) 07/04/20 20:05 Plt Count 393 K/mm3 (150-450) 07/04/20 20:05 MPV 10.3 fl (8-12.5) 07/04/20 20:05 Neutrophils % (Manual) 74 % (42-75) 07/04/20 20:05 Lymphocytes % (Manual) 11 % (20-51) L 07/04/20 20:05 Monocytes % (Manual) 6 % (0-9) 07/04/20 20:05 Eosinophils % (Manual) 7 % (0-3) H 07/04/20 20:05 Neutrophils # (Manual) 10.8 K/mm3 (1.3-6.0) H 07/04/20 20:05 Lymphocytes # (Manual) 1.6 k/mm3 (1.5-3.5) 07/04/20 20:05 Monocytes # (Manual) 0.9 k/mm3 (0.0-1.0) 07/04/20 20:05 Eosinophils # (Manual) 1.0 k/mm3 (0.0-0.7) H 07/04/20 20:05 Atypic/Reactive Lymphs 2 % (0-2) 07/04/20 20:05 Platelet Estimate Normal (NORMAL) 07/04/20 20:05 RBC Morphology Normal (NORMAL) 07/04/20 20:05 Sodium 139 mmol/L (132-142) 07/04/20 20:05 Plasma Sodium 139 mmol/L (130-142) 07/04/20 20:05 Potassium 4.9 mmol/L (3.4-4.6) H D 07/04/20 20:05 Chloride 103 mmol/L (97-106) 07/04/20 20:05 Carbon Dioxide 26.3 mmol/L (24-32.6) 07/04/20 20:05 Anion Gap 14.6 mmol/L (6.8-13.8) H 07/04/20 20:05 BUN 49 mg/dL (3-23) H D 07/04/20 20:05 Creatinine 1.52 mg/dL (0.4-1.4) H D 07/04/20 20:05 Est GFR (Non-Af Amer) 36 mL/min (60-130) L D 07/04/20 20:05 BUN/Creatinine Ratio 32.2 (9.0-21.6) H 07/04/20 20:05 Random Glucose 118 mg/dL (70-110) H 07/04/20 20:05 Calcium 9.7 mg/dL (7.9-10.9) 07/04/20 20:05 Calcium Adj for Albumin 9.3 mg/dL (8.4-10.2) 07/04/20 20:05 Total Bilirubin 0.3 mg/dL (0.0-1.1) 07/04/20 20:05 AST 27 U/L (0-48) 07/04/20 20:05 ALT 24 U/L (19-67) 07/04/20 20:05 Alkaline Phosphatase 110 U/L (50-170) 07/04/20 20:05 Total Protein 8.0 gm/dL (6.2-8.2) 07/04/20 20:05 Albumin 4.1 gm/dl (3.4-5.0) 07/04/20 20:05 SARS-CoV-2 (PCR) Not detected (NotDetected) 07/04/20 20:20 Assessment/Plan - Narrative Narrative: Patient was evaluated medical chart was reviewed and decision to admit to inpatient for treatment of a left greater trochanteric and pubic fracture was made. Patient was evaluated by Ortho who recommend taking her to the OR tomorrow morning to repair the fractures. She will be made n.p.o. after midnight and placed on IV hydration in order to prepare for surgery. Pain will be managed by IV medications to make the patient as comfortable as possible. We will follow-up after the procedure. She is medically cleared for her procedure in the morning. - Assessment/Plan (1) Hip fracture, left Problem: Acute (2) Inferior pubic ramus fracture Problem: Acute Qualifiers: Encounter type: initial encounter Fracture type: closed Laterality: left Qualified Code(s): S32.592A - Other specified fracture of left pubis, initial encounter for closed fracture (3) Intertrochanteric fracture of left femur Problem: Acute Qualifiers: Encounter type: initial encounter Fracture type: closed Fracture alignment: nondisplaced Qualified Code(s): S72.145A - Nondisplaced intertrochanteric fracture of left femur, initial encounter for closed fracture (4) Acute renal insufficiency Problem: Acute (5) Hypertension Problem: Chronic Qualifiers:
[2020-07-04] MEDS ORDERED: amLODIPine BESYLATE 5 MG TABLET ONE (23:25)
[2020-07-05] MEDS: MORPHINE SULFATE 4 MG/ML SYRG IV PRN (05:46)
--- NOTE | 2020-07-05 08:57 | CONS ---
[facility] - General Date of Service: 07/05/20 Narrative: Mrs. Mclaughlin is a 69-year-old female who fell at home resulting in injury to her left hip. She was seen in the emergency department found to have a nondisplaced left intertrochanteric femur fracture as well as pubic ramus fracture. She is admitted to the floor and evaluated by medicine. She denies any other areas of pain. She does note that this has been painful for a while on this left side. She otherwise is healthy and active. Source: patient Exam Limitations: no limitations - History of Present Illness Timing/Duration: 24 hours Severity: moderate Modifying Factors - (Worsens): Reports: movement Modifying Factors - (Improves): Reports: immobilization, medication Associated Symptoms: denies symptoms Allergies/Adverse Reactions: Allergies No Known Allergies Allergy (Verified 07/04/20 18:39) Home Medications: Home Medications Medication Instructions Recorded Last Taken lisinopril 10 1 tab PO DAILY #90 tab 04/13/20 06/23/20 07:00 mg-hydrochlorothiazide 12.5 mg tablet ibuprofen 600 mg tablet 600 mg PO Q6H PRN #60 tab 06/28/20 Unknown Procedures Repair Left Hand Skin, External Approach (12/11/16) Medications - Medications Current Medications: Current Medications Sodium Chloride (Sodium Chloride 0.9%) 1,000 mls @ 999 mls/hr IV .Q1H1M PRN PRN Reason: HYDRATION Stop: 08/03/20 20:58 Last Infusion: 07/04/20 22:21 Dose: Infused Documented by: Morphine Sulfate (Morphine Sulfate 4 Mg/Ml Syrg) 4 mg IV Q4H PRN PRN Reason: Moderate Pain (pain scale 4-6) Stop: 08/03/20 21:32 Last Admin: 07/05/20 05:46 Dose: 4 mg Documented by: Review of Systems - Review of Systems Narrative: As above Physical Examination - Exam Narrative: Left lower extremity: Pain with any hip range of motion, no gross deformity, no ecchymosis or lacerations or abrasions to the hip, palpable dorsalis pedis pulse, sensations intact light touch, able to flex and extend the toes, thigh is soft Vital Signs: Vital Signs - Last Taken Temp 36.8 C 07/05/20 06:21 Pulse 66 07/05/20 06:21 Resp 18 07/05/20 07:00 BP 107/53 07/05/20 06:21 Pulse Ox 94 07/05/20 06:21 O2 Oxygen Delivery Method Room Air Constitutional: Present: Alert, Oriented x3 - Results and Findings: Narrative: AP pelvis 2 views left hip: Nondisplaced left intertrochanteric femur fracture, nondisplaced acute on chronic pubic symphysis fracture on the left, no other acute osseous pathology Lab/Microbiology results last 24 hrs: Abnormal/Pending Laboratory Last 24 HRS 07/04/20 07/04/20 20:05 20:05 WBC 14.6 H RBC 3.95 L Hgb 11.5 L Hct 36.0 L MCHC 31.9 L Lymphocytes % (Manual) 11 L Eosinophils % (Manual) 7 H Neutrophils # (Manual) 10.8 H Eosinophils # (Manual) 1.0 H Potassium 4.9 H D Anion Gap 14.6 H BUN 49 H D Creatinine 1.52 H D Est GFR (Non-Af Amer) 36 L D BUN/Creatinine Ratio 32.2 H Random Glucose 118 H - Assessments/Findings (1) Intertrochanteric fracture of left femur Diagnosis(s): Plan is to undergo closed reduction percutaneous cephalomedullary fixation left hip. She will need 6 weeks of DVT prophylaxis postoperatively. She will receive IV Ancef perioperatively. Consent will be obtained. Problem: Acute Qualifiers: Encounter type: initial encounter Fracture type: closed Fracture alignment: nondisplaced Qualified Code(s): S72.145A - Nondisplaced intertrochanteric fracture of left femur, initial encounter for closed fracture
[2020-07-05] MEDS ORDERED: MORPHINE SULFATE 4 MG/ML SYRG IV PRN (08:58)
[2020-07-05] MEDS ORDERED: MORPHINE SULFATE 2 MG/ML DISP.SYRIN ONE (09:05)
[2020-07-05] MEDS: MORPHINE SULFATE 2 MG/ML DISP.SYRIN IV PRN ×2 (09:14→10:42)
[2020-07-05] MEDS: HYDROCHLOROTHIAZIDE 12.5 MG CAPSULE PO SCH (09:16)
[2020-07-05] MEDS: LISINOPRIL 10 MG TABLET PO SCH (09:16)
--- NOTE | 2020-07-05 09:57 | ANES ---
Anesthesia Pre Procedure Eval Vitals/Labs: Last Vital Signs Temp 36.8 C 07/05/20 06:21 Pulse 69 07/05/20 09:16 Resp 18 07/05/20 07:00 BP 115/66 07/05/20 09:16 Pulse Ox 94 07/05/20 06:21 HOME MEDICATIONS lisinopril 10 mg-hydrochlorothiazide 12.5 mg tablet 1 tab PO DAILY #90 tab 04/13/20 [Last Taken 06/23/20 07:00] ibuprofen 600 mg tablet 600 mg PO Q6H PRN #60 tab 06/28/20 [Last Taken Unknown] Allergies/Adverse Reactions: Allergies Allergy/AdvReac Type Severity Reaction Status Date / Time No Known Allergies Allergy Verified 07/04/20 18:39 - Planned Procedure Planned Procedure: L INTERTROCHANTERIC FX, PUBIC RAMUS,ACUTE RENIFF Medication List Reviewed:: Yes Allergies Verified: Yes Medical History (Last Reviewed 07/05/20 @ 09:56 by Nagi Wylie CRNA) Hip fracture, left (Acute) Greater trochanter Allergic rhinitis (Chronic) Hypertension (Chronic) Onset Date: ~07/2018 Surgical History (Last Reviewed 07/05/20 @ 09:56 by Nagi Wylie CRNA) History of colonoscopy Onset Date: 09/23/18 09/23/18 [place]-tubulovillous adenoma. Recheck 3 yrs. History of tonsillectomy Onset Date: Unknown History of tubal ligation Onset Date: ~1975 Family History (Last Reviewed 07/05/20 @ 09:56 by Nagi Wylie CRNA) Mother , age 76-SD CAD (coronary artery disease) Myocardial infarction Sister Epilepsy Sister Breast cancer dx age 60's Father , age 65-kidney failure No problems noted. Brother Myocardial infarction 1 brother age 46, 1 brother age 59 Cancer 1 brother age 71-lung ca of unknown cause 1 brother age 59 Brother Alive and well 4 brothers - Family Anesthesia History Family History:: no untoward family reactions to anesthesia, no familial bleeding tendencies, no family history of clotting disorders, no family history of premature - Airway/Neck/Teeth Within Normal Limits:: Yes Teeth Condition: intact Mallampatti Score: 3 Thyromental (T-M) distance: > 6 cm Mandibulo Hyoid distance: > 3 cm - Respiratory Respiratory Physical: lungs clear Smoking Status: Never smoker - Cardiovascular Tolerate Activity: Good Heart Sounds: S1 & S2, Regular - Gastrointestinal NPO since: mn - Anesthesia Assessment and Plan ASA Class: PS, II Anesthesia Type Plan: Spinal
--- NOTE | 2020-07-05 10:30 | PN ---
Subjective - Date and Time Seen Date: 07/05/20 Time: 10:19 Subjective Narrative: My pain is adequately controlled for now Objective Objective Narrative: 69-year-old female admitted for left intertrochanteric femur fracture and and inferior pubic rami fracture that was diagnosed several weeks ago. The patient started having pain and was reevaluated in the ER and was found to have displacement of her previous fracture which made surgery necessary. She is scheduled for the OR this morning to fix her fractures, will follow up after the procedure. In the meantime she is still medically cleared for her procedure and shows no concerning symptoms. - Review of Systems Generalized/Overall Review: Reports: No Symptoms Reported EENTM: Reports: No Symptoms Reported Respiratory: Reports: No Symptoms Reported Cardiac: Reports: No Symptoms Reported Abdominal: Reports: No Symptoms Reported Genitourinary Symptoms: Reports: No Symptoms Reported Musculoskeletal Complaints: Reports: Joint Pain - Left hip pain Neurological: Reports: No Symptoms Reported Skin: Reports: No Symptoms Reported Endocrine: Reports: No Symptoms Reported - Vitals Vitals: Last Vital Signs Temp 36.8 C 07/05/20 06:21 Pulse 69 07/05/20 09:16 Resp 18 07/05/20 07:00 BP 115/66 07/05/20 09:16 Pulse Ox 94 07/05/20 06:21 - Abnormal Lab Findings Abnormal Lab Findings: Abnormal Lab Results 07/04/20 07/04/20 Range/Units 20:05 20:05 WBC 14.6 H (4.0-10.5) K/mm3 RBC 3.95 L (4.2-5.4) M/mm3 Hgb 11.5 L (12.5-16.0) gm/dL Hct 36.0 L (37.0-47.0) % MCHC 31.9 L (32-36) g/dl Lymphocytes % (Manual) 11 L (20-51) % Eosinophils % (Manual) 7 H (0-3) % Neutrophils # (Manual) 10.8 H (1.3-6.0) K/mm3 Eosinophils # (Manual) 1.0 H (0.0-0.7) k/mm3 Potassium 4.9 H D (3.4-4.6) mmol/L Anion Gap 14.6 H (6.8-13.8) mmol/L BUN 49 H D (3-23) mg/dL Creatinine 1.52 H D (0.4-1.4) mg/dL Est GFR (Non-Af Amer) 36 L D (60-130) mL/min BUN/Creatinine Ratio 32.2 H (9.0-21.6) Random Glucose 118 H (70-110) mg/dL - Exam Constitutional: Present: Alert, Oriented x3, Cooperative, Well developed, Well nourished, No distress ENT Exam: Present: normal ENT inspection, hearing grossly normal, pharynx normal, TMs normal Neck: Present: non-tender, full range of motion, supple, normal inspection, trachea midline Breasts: Present: Exam deferred, Nontender Respiratory: Present: chest non-tender, lungs clear, normal breath sounds, no respiratory distress, no accessory muscle use Cardiovascular/Chest: Present: normal peripheral pulses, regular rate, rhythm, no chest tenderness, no edema, no gallop, no JVD, no murmur, no rub Abdomen: Present: Normal bowel sounds, soft, nontender, nondistended, no rebound tenderness, no hepatospenomegaly, no masses /Rectal: Present: Exam deferred Extremity: Present: no pedal edema, no calf tenderness, normal capillary refill, leg pain - Left hip pain Skin Exam: Present: normal color, warm/dry, no cyanosis Lymphatic: Present: no adenopathy Neurologic: Present: no motor/sensory deficits, alert, normal mood/affect, oriented x 3 Appearance: Present: appropriate appearance, appropriate insight, neat, no memory impairment Eye contact: Present: cooperative, good eye contact, normal speech Thoughts: Present: normal thought pattern, no apparent hallucination Cauti Physician Documentation - Urinary Catheter Management Urethral ([place]) Date of Insertion: 07/04/20 Time of Insertion: 22:16 Assessment/Plan - Problems/Diagnosis (1) Hip fracture, left Problem: Acute (2) Inferior pubic ramus fracture Problem: Acute Qualifiers: Encounter type: initial encounter Fracture type: closed Laterality: left Qualified Code(s): S32.592A - Other specified fracture of left pubis, initial encounter for closed fracture (3) Intertrochanteric fracture of left femur Problem: Acute Qualifiers: Encounter type: initial encounter Fracture type: closed Fracture alignment: nondisplaced Qualified Code(s): S72.145A - Nondisplaced intertrochanteric fracture of left femur, initial encounter for closed fracture (4) Acute renal insufficiency Problem: Acute (5) Hypertension Problem: Chronic Qualifiers:
[2020-07-05] MEDS ORDERED: ceFAZolin SODIUM 1 GM VIAL ONE (13:13)
[2020-07-05] MEDS ORDERED: MIDAZOLAM HCL/PF 5 MG/ML VIAL ONE (13:21)
[2020-07-05] MEDS ORDERED: NORMAL SALINE 20 ML VIAL ONE (13:22)
[2020-07-05] MEDS ORDERED: BUPIVACAINE HCL/PF 10 ML VIAL ONE (13:22)
[2020-07-05] MEDS ORDERED: PROPOFOL VIAL IV ONE (13:22)
[2020-07-05] MEDS: NORMAL SALINE 1,000 ML IV PRN ×2 (14:05→16:38)
[2020-07-05] MEDS ORDERED: ceFAZolin SODIUM 1 GM VIAL IV ONE (14:49)
--- NOTE | 2020-07-05 15:22 | OR ---
Operative Report - Dictated Report Narrative: Date: 07/05/2020 Surgeon: Sagar Pedersen M.D. Game Warden: [place] PA-C (provided an essential set of skilled educated handset assisted with transfer, positioning, prepping, draping, placement of instruments, insertion of implants, irrigation, closure wounds, and placement of dressings all which could not be performed by the available surgical crew) Preoperative diagnosis: Closed left nondisplaced intertrochanteric femur fracture Postoperative diagnosis: Closed left nondisplaced intertrochanteric femur fracture Operations and procedures: 1. Closed reduction, cephalo-medullary fixation left intertrochanteric femur fracture 2. Intraoperative interpretation of radiographs Anesthesia: Spinal Specimens: None Estimated blood loss: 75 mL milliliters Retained implants: [employer] Trigen InterTAN 130 degree size 10 mm by 18 centimeter nail with 100 millimeter lag screw and 95 millimeter compression screw, with distal locking screw Complications: None Indications for procedure: Mrs. Mclaughlin is a 69-year-old female who injured the left leg after ground- level fall at home. They were admitted to the hospital after being evaluated in the emergency department. Once the medical provider felt that they were stable for surgical treatment, the risks and benefits alternatives were discussed. The risks of , blood clots, bleeding, infection, nerve/tendon/blood vessel injury, malunion, nonunion, failure of implants, painful implants, arthrosis, and need for additional procedures were discussed. The extremity was marked and consent was obtained on the floor. Procedure: After marking the operative extremity on the floor, the patient was taken to the operating room. A timeout was performed. IV antibiotics consisting of Ancef were administered. A spinal anesthetic was induced by anesthesia, and the patient was then placed onto a fracture table with a well-padded perineal post. The nonoperative leg was placed in a well-padded traction boot in slight extension without any traction with an SCD on the leg. The operative leg was placed in a well-padded traction boot. Longitudinal traction, internal rotation, and flexion were utilized in order to reduce the fracture. Preliminary images were attained utilizing C-arm in both the AP and lateral views. This confirmed that we had obtained adequate visualization of the fracture as well as reduction. Next the hip was then prepped and draped in a standard sterile fashion. Next the guidewire was placed percutaneously proximal to the greater trochanter to karen a starting point at the tip of the greater trochanter centered on the lateral view. This was passed down to the level below the lesser trochanter. A scalpel was utilized in order to dissect down to the greater trochanter in order to place the soft tissue protector down to bone. The entry drill was then placed down the proximal femur to the level of the lesser trochanter. The proper size nail was then selected and impacted into place. The outrigger was utilized in order to confirm the appropriate depth of the nail. Using the alignment device on the outrigger, an incision was made over the lateral femur. Sharp dissection was carried through the iliotibial band down to the proximal femur. The guidewire was placed into the femoral head in a center- center position on AP and lateral views. The tip-apex distance of less than 25 mm combined was obtained. Once we felt that we had placed a guidewire in the appropriate position, it was measured. Next the compression screw site was drilled through the lateral femoral cortex. This was then drilled down to the appropriate depth, again confirming that we are within the confines the bone. The derotational bar was then placed and the lag screw was drilled. The lag screw was then secured in place seating fully ensuring that we were within the confines of the bone. The compression screw was then inserted allowing for compression while releasing the traction on the leg. Using C-arm this was visualized to allow for compression across the fracture site. Once is felt that we had adequately stabilized the intertrochanteric fracture, the distal interlocking screw was placed in a dynamic position. It was confirmed to be the appropriate length and within the nail on both AP and lateral views. The nail was secured allowing for controlled compression and the outrigger was removed. The wounds were then thoroughly irrigated. Final images were obta ined. The hip was placed through range of motion and showed no crepitance. The deep fascia was closed with 0 Vicryl, the subcutaneous tissue with 3-0 Vicryl, and the skin was closed with mihir. Sterile dressings of Xeroform, 4 x 4, and tape were applied. All sponge, sharp, and instrument counts were correct prior to closing the wounds. The patient was then awoken and transferred to the post anesthesia care unit in stable condition.
[2020-07-05] MEDS ORDERED: MAG HYDROX/ALUMINUM HYD/SIMETH 30 ML UDC PO PRN (15:24)
[2020-07-05] MEDS ORDERED: ACETAMINOPHEN 500 MG TABLET PO PRN (15:24)
[2020-07-05] MEDS ORDERED: ONDANSETRON HCL/PF 2 MG/ML VIAL IV PRN (15:24)
[2020-07-05] MEDS ORDERED: MAGNESIUM HYDROXIDE 30 ML UDC PO PRN (15:24)
--- NOTE | 2020-07-05 15:44 | ANES ---
Post Anesthesia Discharge - Transfer of Care Transfer of Care handoff given to nurse: Yes - Discharge from PACU Discharge from PACU when meets criteria: Yes
--- NOTE | 2020-07-05 16:07 | ANES ---
Post Anesthesia Assessment - Vital Signs Vitals: Last Vital Signs Temp 36.3 C 07/05/20 15:55 Pulse 66 07/05/20 15:55 Resp 14 07/05/20 15:55 BP 90/45 07/05/20 15:55 Pulse Ox 97 07/05/20 15:55 Airway Patency: Normal - Mental Status Level Of Consciousness: Awake - Pain Level Pain Score: 0 - N/V Assessment Nausea/Vomiting Presence: None Dehydration:: No
[2020-07-05] MEDS: ceFAZolin SODIUM 1 GM in DEXTROSE 5 % IN WATER 100 ML IV SCH ×2 (17:45)
[2020-07-05] MEDS: HYDROcodone/ACETAMINOPHEN 1 EACH TABLET PO PRN (19:51)
[2020-07-05] MEDS: SENNOSIDES/DOCUSATE SODIUM 1 TAB TABLET PO SCH (20:19)
[2020-07-06] MEDS: HYDROcodone/ACETAMINOPHEN 1 EACH TABLET PO PRN ×5 (00:12→21:05)
[2020-07-06] MEDS: ceFAZolin SODIUM 1 GM in DEXTROSE 5 % IN WATER 100 ML IV SCH ×4 (00:13→04:53)
[2020-07-06] MEDS ORDERED: ceFAZolin SODIUM 1 GM VIAL IV PRN (06:00)
[2020-07-06 06:48] LABS: Hematocrit 29.1 % (37.0-47.0); Hemoglobin 9.1 gm/dL (12.5-16.0); Mean Cell Volume 92.1 fl (78-100); Mean Corpuscular Hemoglobin 28.8 pg (27-31); Mean Corpuscular Hgb Conc 31.3 g/dl (32-36); Mean Platelet Volume 10.1 fl (8-12.5); Platelet Count 284 K/mm3 (150-450); Red Blood Count 3.16 M/mm3 (4.2-5.4); Red Cell Distribution Width 13.1 % (11.5-14.0); White Blood Count 12.7 K/mm3 (4.0-10.5)
[2020-07-06 06:50] LABS: Anion Gap 10.1 mmol/L (6.8-13.8); BUN/Creatinine Ratio 15.1 (9.0-21.6); Calcium * 8.1 mg/dL (7.9-10.9); Carbon Dioxide 24.8 mmol/L (24-32.6); Estimated Creat Clear 48.6; Potassium 3.9 mmol/L (3.4-4.6)
[2020-07-06] MEDS: LISINOPRIL 10 MG TABLET PO SCH (08:35)
[2020-07-06] MEDS: RIVAROXABAN 20 MG TABLET PO SCH (08:35)
[2020-07-06] MEDS: HYDROCHLOROTHIAZIDE 12.5 MG CAPSULE PO SCH (08:35)
--- NOTE | 2020-07-06 10:14 | PN ---
Subjective - Date and Time Seen Date: 07/06/20 Time: 10:12 Subjective Narrative: Subjective: Reports improved pain compared to yesterday. Was able to walk in the room with therapy. Pain is well-controlled. Voiding without any complications. Tolerating by mouth intake. Denies any nausea or vomiting. Denies calf pain. Slept well. Physical exam: Alert and oriented to person, place and time Left lower extremity: Palpable dorsalis pedis pulse. Sensation grossly intact to light touch. Dressings clean and dry. Able to flex and extend ankle and toes. No excessive drainage. Calf and thigh are soft and nontender. Assessment: Postop day 1 status post cephalomedullary fixation of left intertrochanteric femur fracture. Plan: Continue with physical and occupational therapy weightbearing as tolerated. Continue with anticoagulation-she will need 6 weeks of DVT prophylaxis. 24 hours postoperative prophylactic antibiotics. Pain control with goal to rely on oral medications. Continue bowel regimen. Will need 6 weeks with walker or assitive device to protect joint while ambulating during the recovery process. Discharge planning -from an orthopedic standpoint she is okay to discharge to home or transfer to a skilled facility when medically stable. She will follow- up in 2 weeks with orthopedics. Continue anticoagulation. Keep the wound dry. Cover with dry gauze and tape and change every 2 to 3 days as needed. Continue physical therapy weightbearing as tolerated with range of motion as tolerated. Objective - Vitals Vitals: Last Vital Signs Temp 36.9 C 07/06/20 04:00 Pulse 74 07/06/20 08:35 Resp 16 07/06/20 04:00 BP 122/63 07/06/20 08:35 Pulse Ox 96 07/06/20 04:00 - Abnormal Lab Findings Abnormal Lab Findings: Abnormal Lab Results 07/06/20 07/06/20 Range/Units 06:20 06:20 WBC 12.7 H (4.0-10.5) K/mm3 RBC 3.16 L (4.2-5.4) M/mm3 Hgb 9.1 L (12.5-16.0) gm/dL Hct 29.1 L (37.0-47.0) % MCHC 31.3 L (32-36) g/dl Chloride 108 H (97-106) mmol/L Cauti Physician Documentation - Urinary Catheter Management Urethral ([place]) Date of Insertion: 07/04/20 Time of Insertion: 22:16 Assessment/Plan - Problems/Diagnosis (1) Intertrochanteric fracture of left femur Problem: Acute Qualifiers: Encounter type: initial encounter Fracture type: closed Fracture alignment: nondisplaced Qualified Code(s): S72.145A - Nondisplaced intertrochanteric fracture of left femur, initial encounter for closed fracture
--- NOTE | 2020-07-06 13:26 | PN ---
Subjective - Date and Time Seen Date: 07/06/20 Time: 13:21 Subjective Narrative: My pain is adequately controlled for now. Objective Objective Narrative: 69-year-old female Postop day 1 status post cephalomedullary fixation of left intertrochanteric femur fracture was evaluated at bedside was found to be afebrile and in no acute distress. Patient underwent a uneventful and successful surgery yesterday to fix her fracture and tolerated the procedure without any issues. She was ordered to start physical and occupational therapy while here in the hospital by the orthopedic surgeon and she has been tolerating the sessions without any major adverse events. The patient reports adequate control of her pain and denies any new symptoms. We will reevaluate her in the morning. - Review of Systems Generalized/Overall Review: Reports: No Symptoms Reported EENTM: Reports: No Symptoms Reported Respiratory: Reports: No Symptoms Reported Cardiac: Reports: No Symptoms Reported Abdominal: Reports: No Symptoms Reported Genitourinary Symptoms: Reports: No Symptoms Reported Musculoskeletal Complaints: Reports: Joint Pain - Left hip pain Neurological: Reports: No Symptoms Reported Skin: Reports: No Symptoms Reported Endocrine: Reports: No Symptoms Reported - Vitals Vitals: Last Vital Signs Temp 36.5 C 07/06/20 11:41 Pulse 84 07/06/20 11:41 Resp 18 07/06/20 11:41 BP 118/66 07/06/20 11:41 Pulse Ox 100 07/06/20 11:41 - Abnormal Lab Findings Abnormal Lab Findings: Abnormal Lab Results 07/06/20 07/06/20 Range/Units 06:20 06:20 WBC 12.7 H (4.0-10.5) K/mm3 RBC 3.16 L (4.2-5.4) M/mm3 Hgb 9.1 L (12.5-16.0) gm/dL Hct 29.1 L (37.0-47.0) % MCHC 31.3 L (32-36) g/dl Chloride 108 H (97-106) mmol/L - Exam Constitutional: Present: Alert, Oriented x3, Cooperative, Well developed, Well nourished, No distress ENT Exam: Present: normal ENT inspection, hearing grossly normal Neck: Present: non-tender, full range of motion, supple, normal inspection, trachea midline Breasts: Present: Exam deferred, Nontender Respiratory: Present: chest non-tender, lungs clear, normal breath sounds, no respiratory distress, no accessory muscle use Cardiovascular/Chest: Present: normal peripheral pulses, regular rate, rhythm, no chest tenderness, no edema, no gallop, no JVD, no murmur, no rub Abdomen: Present: Normal bowel sounds, soft, nontender, nondistended, no rebound tenderness, no hepatospenomegaly, no masses /Rectal: Present: Exam deferred Extremity: Present: no pedal edema, no calf tenderness, normal capillary refill, pelvis stable, leg pain Skin Exam: Present: normal color, warm/dry, no cyanosis Lymphatic: Present: no adenopathy Neurologic: Present: computer systems hardware analyst II-XII nml as tested, normal cerebellar test, no motor/sensory deficits, alert, normal mood/affect, oriented x 3 Appearance: Present: appropriate appearance, appropriate insight, neat, no memory impairment Eye contact: Present: cooperative, good eye contact, normal speech Thoughts: Present: normal thought pattern, no apparent hallucination Cauti Physician Documentation - Urinary Catheter Management Urethral (Licona) Date of Insertion: 07/04/20 Time of Insertion: 22:16 Assessment/Plan Plan Narrative: We will continue with PT and OT and reevaluate the patient in the morning. - Problems/Diagnosis (1) Hip fracture, left Problem: Acute (2) Inferior pubic ramus fracture Problem: Acute Qualifiers: Encounter type: initial encounter Fracture type: closed Laterality: left Qualified Code(s): S32.592A - Other specified fracture of left pubis, initial encounter for closed fracture (3) Intertrochanteric fracture of left femur Problem: Acute Qualifiers: Encounter type: initial encounter Fracture type: closed Fracture alignment: nondisplaced Qualified Code(s): S72.145A - Nondisplaced intertrochanteric fracture of left femur, initial encounter for closed fracture (4) Acute renal insufficiency Problem: Acute (5) Hypertension Problem: Chronic Qualifiers: (6) Status post-operative repair of hip fracture Problem: Acute
[2020-07-06] MEDS: SENNOSIDES/DOCUSATE SODIUM 1 TAB TABLET PO SCH (21:05)
--- NOTE | 2020-07-07 09:04 | DS ---
(1) Hip fracture, left Problem: Acute (2) Inferior pubic ramus fracture Problem: Acute Qualifiers: Encounter type: initial encounter Fracture type: closed Laterality: left Qualified Code(s): S32.592A - Other specified fracture of left pubis, initial encounter for closed fracture (3) Intertrochanteric fracture of left femur Problem: Acute Qualifiers: Encounter type: initial encounter Fracture type: closed Fracture alignment: nondisplaced Qualified Code(s): S72.145A - Nondisplaced intertrochanteric fracture of left femur, initial encounter for closed fracture (4) Acute renal insufficiency Problem: Resolved (5) Hypertension Problem: Chronic Qualifiers: (6) Status post-operative repair of hip fracture Problem: Acute Date of Discharge:: 07/07/20 Hospital Course: 69-year-old female admitted for fracture of the left intertrochanteric femoral fracture and RONAL is status post cephalomedullary fixation of left intertrochanteric femur postop day #2 was evaluated at bedside and was found to be afebrile and in no acute distress. Patient has progressed in her postop recovery, she tolerated physical therapy without any issues and will continue with PT on outpatient basis. After hydrating the patient with IV normal saline her acute kidney injury has completely resolved. She was cleared by Ortho for discharge to her home with ongoing physical therapy. She was started on a 6- week regimen of oral anticoagulants and has a follow-up appointment with the orthopedic surgeon. Patient was also instructed to follow-up with her PCP. Procedures Performed: see notes below List Procedures: cephalomedullary fixation of left intertrochanteric femur fracture. Results and Findings: Lab Pending Results 07/04/20 20:05: WBC 14.6 H, RBC 3.95 L, Hgb 11.5 L, Hct 36.0 L, MCV 91.1, MCH 29.1, MCHC 31.9 L, RDW 13.3, Plt Count 393, MPV 10.3, Neutrophils % (Manual) 74, Lymphocytes % (Manual) 11 L, Monocytes % (Manual) 6, Eosinophils % (Manual) 7 H, Neutrophils # (Manual) 10.8 H, Lymphocytes # (Manual) 1.6, Monocytes # (Manual) 0.9, Eosinophils # (Manual) 1.0 H, Atypic/Reactive Lymphs 2, Platelet Estimate Normal, RBC Morphology Normal 07/04/20 20:05: Sodium 139, Plasma Sodium 139, Potassium 4.9 H D, Chloride 103, Carbon Dioxide 26.3, Anion Gap 14.6 H, BUN 49 H D, Creatinine 1.52 H D, Est GFR (Non-Af Amer) 36 L D, BUN/Creatinine Ratio 32.2 H, Random Glucose 118 H, Calcium 9.7, Calcium Adj for Albumin 9.3, Total Bilirubin 0.3, AST 27, ALT 24, Alkaline Phosphatase 110, Total Protein 8.0, Albumin 4.1 07/04/20 20:20: SARS-CoV-2 (PCR) Not detected 07/06/20 06:20: WBC 12.7 H, RBC 3.16 L, Hgb 9.1 L, Hct 29.1 L, MCV 92.1, MCH 28.8, MCHC 31.3 L, RDW 13.1, Plt Count 284, MPV 10.1 07/06/20 06:20: Sodium 139, Plasma Sodium 139, Potassium 3.9 D, Chloride 108 H, Carbon Dioxide 24.8, Anion Gap 10.1, BUN 14 D, Creatinine 0.93, Est GFR (Non-Af Amer) 63 D, BUN/Creatinine Ratio 15.1, Random Glucose 110, Calcium 8.1 Discharge Location: Home Disposition: Home self-care Condition: Stable Discharge Activity: Activity as tolerated Discharge Diet: General/regular food [facility] Therapy: Physical Therapy, Occupation Therapy Additional Patient Instructions (free text): Physical Therapy at [facility] outpatient rehab on this SundayJuly 09 at 10:00am. Follow up [facility] Orthopedic office appointment on SundayJuly 20 at 1:45pm. Orthopedic instructions: Continue physical therapy weightbearing as tolerated with range of motion as tolerated. Continue with anticoagulation-she will need 6 weeks of DVT prophylaxis. Will need 6 weeks with walker or assitive device to protect joint while ambulating during the recovery process. She will follow-up in 2 weeks with orthopedics. Keep the wound dry. Cover with dry gauze and tape and change every 2 to 3 days as needed. Prescriptions (Any new or edited meds): HYDROcodone/ACETAMINOPHEN [[place] 5-325] 1 ea PO Q4H PRN #45 tab PRN Reason: Moderate Pain (Pain Scale 4-6) Transmission Status: Received by [place] Rivaroxaban [Xarelto] 10 mg PO DAILY #40 tab Transmission Status: Pending to [place] Complete Home Medications List: Complete Home Medication List: lisinopril 10 mg-hydrochlorothiazide 12.5 mg tablet 1 tab PO DAILY #90 tab 04/13/20 ibuprofen 600 mg tablet 600 mg PO Q6H PRN #60 tab 06/28/20 HYDROcodone/ACETAMINOPHEN [[place] 5-325] 1 ea PO Q4H PRN #45 tab 07/07/20 Rivaroxaban [Xarelto] 10 mg PO DAILY #40 tab 07/07/20 Forms: Patient Portal Registration
[2020-07-07] MEDS: HYDROcodone/ACETAMINOPHEN 1 EACH TABLET PO PRN ×2 (09:06→13:58)
[2020-07-07] MEDS: LISINOPRIL 10 MG TABLET PO SCH (09:06)
[2020-07-07] MEDS: HYDROCHLOROTHIAZIDE 12.5 MG CAPSULE PO SCH (09:06)
[2020-07-07] MEDS: RIVAROXABAN 20 MG TABLET PO SCH (09:06)
[2020-07-07 14:34] VITALS: BP 106/62
== END 2020-07-07 13:59 | disposition home or self-care (01) | DRG 481 ==
LOC: ER 18:33 → MS 21:24
PROVIDERS: ADMIT Family Medicine; ATTEND Family Medicine
DX: S32.592D Other specified fracture of left pubis, subsequent encounter for fracture with routine healing; S72.145A Nondisplaced intertrochanteric fracture of left femur, initial encounter for closed fracture; N17.9 Acute kidney failure, unspecified; I10 Essential (primary) hypertension